=== PATIENT | male | born 2000 | race Caucasian/White ===

== ENCOUNTER 2023-12-26 23:41 | Emergency (ER) | payer BC ==
[~2023-12-26] VITALS: Ht 182.9 cm; Wt 68.0 kg
[2023-12-27] MEDS ORDERED: QVAR REDIHALE10.6 G1 IH (00:39)
== END 2023-12-27 | disposition left against medical advice (07) ==
LOC: ER 23:43
DX: Z53.21 Procedure and treatment not carried out due to patient leaving prior to being seen by health care provider (principal)